=== PATIENT | male | born 1970 | race African-American/Black ===

== ENCOUNTER 2018-12-31 08:50 | Inpatient (IN) ==
[2018-12-31] MEDS ORDERED: ZOFRAN IV ONE (10:02)
[2018-12-31] MEDS ORDERED: DILAUDID IV ONE (10:02)
--- NOTE | 2018-12-31 10:57 | EKG Report ---
Test Performed on : 12/31/2018 10:23:59 AM Test Reason : epigastric pain Blood Pressure : / mmHG Vent. Rate : 084 BPM Atrial Rate : 084 BPM P-R Int : 204 ms QRS Dur : 102 ms QT Int : 418 ms P-R-T Axes : 053 -15 082 degrees QTc Int : 493 ms Normal sinus rhythm. Minimal voltage criteria for LVH, may be normal variant Nonspecific T wave abnormality Prolonged QT Abnormal ECG When compared with ECG of 03-DEC-2018 21:18, (Unconfirmed) No significant change was found Unconfirmed Result
[2018-12-31 11:09] LABS: ALLEN TEST YES; BE -5.1 mmoll (-3.0-3.0); BLOOD TYPE ARTERIAL; HCO3-(ACT) 20.8 mmoll (20.0-26.0); METHB 0.7 % (0.0-1.5); O2(CT) 15.8 mL/dL (15.0-23.0); O2HB 90.3 % (95.0-99.0); PCO2(98.6) 36 mmHg (35-45); PO2(98.6) 63 mmHg (60-100); SAMPLE BLOOD; SAO2 94.6 % (95.0-100.0); THB 12.4 g/dL (11.5-17.4); pH(98.6) 7.35 (7.35-7.45)
[2018-12-31 11:10] LABS: MODALITY ROOM AIR
[2018-12-31 12:11] LABS: URINE SOURCE CLEAN CATCH
[2018-12-31 12:14] LABS: BILIRUBIN URINE NEGATIVE (NEGATIVE); BLOOD URINE SMALL (NEGATIVE); COLOR YELLOW; GLUCOSE URINE NEGATIVE (NEGATIVE); KETONE URINE TRACE mg/dL (NEGATIVE); LEUKOCYTES URINE NEGATIVE (NEGATIVE); NITRITE URINE NEGATIVE (NEGATIVE); PROTEIN URINE 600 mg/dL (NEGATIVE); SP GRAVITY URINE 1.012; TURBIDITY URINE CLEAR (CLEAR); UROBILINOGEN URINE NORMAL (NORMAL)
[2018-12-31 12:15] LABS: UR EPITHELIAL CELLS <10 /HPF (<10); URINE BACTERIA NEGATIVE /HPF; URINE RBC <10 /HPF (<10); URINE WBC <10 /HPF (<10)
[2018-12-31 12:21] LABS: BASO# 0.05 X1000 (0.0-0.2); BASO% 0.9 % (0.0-0.8); EOS# 0.49 X1000 (0.0-0.7); EOS% 8.4 % (0.0-10.0); HEMATOCRIT 29.7 % (42.0-52.0); HEMOGLOBIN 9.5 g/dL (14.0-18.0); LYMPH# 0.83 X1000 (1.2-3.4); LYMPH% 14.2 % (20.5-51.1); MCH 29.6 PG (27-31); MCV 92.5 FL (81-99); MONO# 0.31 X1000 (0.11-0.59); MONO% 5.3 % (1.7-9.3); MPV 12.5 FL (7.4-10.4); NEUT# 4.15 X1000 (1.4-6.5); NEUT% 71.2 % (42.2-75.2); PLT 125 X1000 (130-400); RBC 3.21 XMIL (4.7-6.1); RDW 15.3 % (11.5-14.5); WBC 5.83 X1000 (4.8-10.8)
[2018-12-31 12:32] LABS: INR 1.12; PROTIME 14.6 Seconds (11.0-16.0)
[2018-12-31 12:33] LABS: PTT 32.8 Seconds (22.3-41.8)
[2018-12-31 12:50] LABS: ALB/GLOB RATIO 1.2; CALCIUM 9.1 mg/dL (8.8-10.2); MAGNESIUM 2.1 mg/dL (1.5-2.7); POTASSIUM 5.6 mmol/L (3.5-5.1); TOTAL BILIRUBIN 0.44 mg/dL (0.20-1.00); TOTAL PROTEIN 7.3 g/dL (6.3-8.3)
[2018-12-31 12:52] LABS: CREATININE 12.1 mg/dL (0.7-1.2)
--- NOTE | 2018-12-31 13:24 | Diag Imaging Result Doc PS360 ---
EXAM: CT ABD/PELVIS W/IV CONT ONLY 12/31/2018 HISTORY: epigastric pain TECHNIQUE: This exam was performed using automated exposure control, adjustment of mA or kV according to patient size, and/or use of iterative reconstruction technique. COMMENT: There are patchy areas of air trapping in the right lower lobe. There is some fibrosis in the lateral costophrenic sulcus of the left lower lobe. These findings were present on 11/27/2017. There is a tiny amount of fluid present in both pleural spaces particularly the posterior costophrenic sulcus of the right chest, and this was not present previously. There is a granuloma adjacent to the intrahepatic portion of the inferior vena cava. There are dense calcifications in the ostia of the renal arteries bilaterally. There is no evidence of abdominal aortic aneurysm. There are stents in the distal inferior vena cava and both common iliac veins. These extend into the external iliac veins. There are no gallstones. The liver and spleen are unremarkable. Both kidneys are somewhat atrophic in appearance. There are no stones. The right kidney is somewhat malrotated. The adrenal glands are not enlarged. There are calcifications in the pancreas with dilatation of the pancreatic duct in the tail and a cluster of calcifications in the head of the pancreas. This is denser and more concentrated than on the previous examination. The pancreatic head is not as enlarged as it was previously, and the peripancreatic inflammatory changes around the head of the pancreas are no longer evident. There does appear to be some residual peripancreatic fluid around the tail of the pancreas however. The findings are consistent with chronic pancreatitis changes. The dilatation of the duct in the tail was not present at the time the previous study. There is no evidence of bowel obstruction. No significant adenopathy is present. Pelvis: The appendix is normal in appearance. There is no free fluid. The urinary bladder is not distended. There is a right inguinal hernia containing a small bowel loop without evidence of obstruction. The regional skeleton appears to be intact. IMPRESSION: Findings consistent with chronic pancreatitis, with possible superimposed acute changes involving the tail of the pancreas. Dilatation of the pancreatic duct in the tail. Small right pleural effusion. Other nonacute findings as described above. Electronically signed by Ti Silva 12/31/2018 1:21 PM
[2018-12-31] MEDS ORDERED: NS 2,000 ML MISC PRN (14:32)
[2018-12-31] MEDS ORDERED: HEPARIN IV PRN (14:32)
--- NOTE | 2018-12-31 15:10 | PROVIDER DOCUMENTATION ---
This chart was entered by Cherise Ladd Scribe, acting as scribe for Jonn Ellis MD. HPI-Abdominal Pain/GI Problem - General Chief Complaint: Abdominal Pain Stated Complaint: ABD PAIN Time Seen by Provider: 12/31/18 09:51 Source: patient Allergies/Adverse Reactions: Patient Allergies Allergy/AdvReac Type Severity Reaction Status Date / Time No Known Allergies Allergy Verified 12/31/18 09:53 Home Medications: Home Medication List Medication Instructions Recorded Confirmed Last Taken Type Calcium Acetate 2 tab PO TID 09/21/17 12/31/18 09/25/18 History Carvedilol 25 mg PO BID 09/21/17 12/31/18 09/25/18 History Hydralazine [Apresoline] 50 mg PO TID 09/21/17 12/31/18 09/25/18 History Isosorbide Mononitrate [Isosorbide 60 mg PO DAILY 09/21/17 12/31/18 09/25/18 History Mononitrate ER] Folic Acid 1 mg PO DAILY #90 tab 10/22/17 12/31/18 09/25/18 Rx Arformoterol Neb [Brovana Neb] 15 microgm INH RTBID 30 Days #1 neb 11/25/17 12/31/18 09/25/18 Rx Pantoprazole [Protonix] 40 mg PO DAILY@0700 30 Days #30 tab 11/25/17 12/31/18 09/25/18 Rx Amlodipine [Norvasc] 10 mg PO DAILY #90 tab 01/04/18 12/31/18 09/25/18 Rx Aspirin 81 mg PO DAILY chewtab 01/04/18 12/31/18 09/25/18 Rx Oxycodone HCl/Acetaminophen 1 tab PO TID PRN PRN #0 01/04/18 12/31/18 09/25/18 Rx [Percocet 10-325 mg Tablet] Risperidone 1 mg PO BID 08/14/18 12/31/18 09/25/18 History Gabapentin [Neurontin] 100 mg PO QHS #10 cap 08/26/18 12/31/18 09/25/18 Rx Apixaban [Eliquis] 2.5 mg PO BID 11/02/18 12/31/18 Unknown History Cinacalcet [Sensipar] 30 mg PO DAILY 12/03/18 12/31/18 Unknown History Duloxetine [Cymbalta] 30 mg PO DAILY 12/03/18 12/31/18 Unknown History Fluoxetine [Prozac] 10 mg PO TID 12/03/18 12/31/18 Unknown History Ondansetron HCl [Zofran] 4 mg PO Q4-6H PRN PRN 12/03/18 12/31/18 Unknown History - History of Present Illness-ABD Nature of Presenting Problems: 48 yom c/o severe epigastric pain since last night w/multiple vomiting episodes. pt is missing dialysis today due to pain and coming to er. pt has hx of ckd, recurrent pancreatitis, chronic peripheral edema, diet controlled DM, copd, anemia and MN 1 yr ago w/no stent. pt is followed by Dr. Nunes. pt is on constant o2 at home. Abdominal Pain Onset Location: reports: epigastric Pain Radiation: reports: no radiation Onset/Duration: reports: last night Timing: reports: still present Activities at Onset: reports: none Associated Symptoms: reports: vomiting Last BM: unsure Review of Systems - Adult - REVIEW OF SYSTEMS - ADULT Constitutional: reports: no symptoms reported. denies: fever, fatique, night sweats Eyes: reports: no symptoms reported Ears, Nose, Mouth & Throat: reports: no symptoms reported Cardiovascular: reports: no symptoms reported Respiratory: reports: no symptoms reported Gastrointestinal: reports: see HPI, abdominal pain (epigastric), vomiting. denies: constipation, diarrhea, poor appetite Genitourinary: reports: no symptoms reported Musculoskeletal: reports: no symptoms reported Integumentary: reports: no symptoms reported Neurological: reports: no symptoms reported Psychiatric: reports: no symptoms reported Endocrine: reports: no symptoms reported Hematologic/Lymphatic: reports: no symptoms reported Allergic/Immunologic: reports: no symptoms reported All Other Systems: Reviewed and Negative Past History - Adult - PAST MEDICAL HISTORY-ADULT Review of Records: reports: Old Records Reviewed, Nursing Assessment Review, Medications Reviewed, Social history reviewed & non-contributory. Major Childhood Illnesses: reports: denies history Cardiovascular: reports: CHF, HTN, [place] Respiratory: reports: asthma, COPD Gastrointestinal: reports: pancreatitis Obstetrical/Gynecological: reports: denies history Genitourinary: reports: dialysis (Tues,Thurs,Sat), ESRD, kidney disease Musculoskeletal: reports: chronic pain Neurological: reports: denies history Psychiatric: reports: anxiety, bipolar, depression, psychiatric problems Endocrine/Immune: reports: anemia, Diabetes Other Conditions: reports: denies history - PRIOR SURGERIES/PROCEDURES Surgical/Procedure History: reports: other (stents bilateral lower legs, fistula right upper arm) - IMMUNIZATION STATUS Childhood Immunizations: See Nurse Assessment Flu Vaccine: See Nurse Assessment - FAMILY HISTORY Family History: reviewed, not pertinent - SOCIAL HISTORY Smoking: cigar (1/day) Substance Use: alcohol Alcohol Use Frequency: occasionally Physical Exam-General - PHYSICAL EXAM-ADULT Initial Vital Signs Reviewed: Yes - CONSTITUTIONAL General Appearance: appears well, alert, no apparent distress. negative: cachetic, lethargic, slow to respond - EYES Eyes: PERRL/EOMI, pink conjunctivae - HEAD, EARS, NOSE, MOUTH & THROAT HENMT: normocephalic/atraumatic, moist mucous membranes, normal ENT inspection - NECK Neck: non-tender, full range of motion, supple, normal inspection - RESPIRATORY Respiratory: chest non-tender, lungs clear, normal breath sounds - CARDIOVASCULAR Cardiovascular: normal peripheral pulses, regular rate, rhythm - GASTROINTESTINAL (ABDOMEN) Abdominal Exam: normal bowel sounds, soft, no organomegaly, no pulsatile mass, tenderness (moderate tenderness epigastric to palp). negative: non tender, abnormal bowel sounds, guarding, rigid - LYMPHATIC Lymphatic: no adenopathy - MUSCULOSKELETAL Back Exam: normal inspection, no CVA tenderness, no vertebral tenderness Extremity: normal range of motion, non-tender, normal inspection, other (fisutla RUE, chronic peripheal edema bilat LE) Peripheral Pulses: radial (R): 2+, radial (L): 2+ - SKIN Integumentary: normal color, normal turgor, warm/dry - NEUROLOGIC Neurologic: grossly normal, no motor/sensory deficits - PSYCHIATRIC Psych/Mental Status: normal mood/affect, normal thought content, normal thought process, oriented x 3 Progress - PLAN OF CARE/RESULTS Progress/Plan/Lab Results: Vital Signs - 8 hr 12/31/18 08:56 Temperature 97.4 F L Pulse Rate 88 Respiratory Rate 18 Blood Pressure 186/119 O2 Sat by Pulse Oximetry 94 L Result Diagrams: 12/31/18 11:46 12/31/18 11:46 - EKG 1 Time of EKG reading by physician:: 10:27 EKG Read and Signed by:: Jonn Ellis EKG Interpretation (*Must complete 3 of following elements*): Abnormal Rate: 84 Rhythm: NSR QRS: LVH (minimal voltage criteria for LVH, may be normal variant), other (prolonged QT) ST Wave: non-specific ST changes (nonspecific T wave abnormality) - CT/MRI 1 CT Study: Abdomen, Pelvis Impression: Abnormal, See EMR Report (EXAM: CT ABD/PELVIS W/IV CONT ONLY 12/31/2018 HISTORY: epigastric pain TECHNIQUE: This exam was performed using automated exposure control, adjustment of mA or kV according to patient size, and/or use of iterative reconstruction technique. COMMENT: There are patchy areas of air trapping in the right lower lobe. There is some fibrosis in the lateral costophrenic sulcus of the left lower lobe. These findings were present on 11/27/2017. There is a tiny amount of fluid present in both pleural spaces particularly the posterior costophrenic sulcus of the right chest, and this was not present previously. There is a granuloma adjacent to the intrahepatic portion of the inferior vena cava. There are dense calcifications in the ostia of the renal arteries bilaterally. There is no evidence of abdominal aortic aneurysm. There are stents in the distal inferior vena cava and both common iliac veins. These extend into the external iliac veins. There are no gallstones. The liver and spleen are unremarkable. Both kidneys are somewhat atrophic in appearance. There are no stones. The right kidney is somewhat malrotated. The adrenal glands are not enlarged. There are calcifications in the pancreas with dilatation of the pancreatic duct in the tail and a cluster of calcifications in the head of the pancreas. This is denser and more concentrated than on the previous examination. The pancreatic head is not as enlarged as it was previously, and the peripancreatic inflammatory changes around the head of the pancreas are no longer evident. There does appear to be some residual peripancreatic fluid around the tail of the pancreas however. The findings are consistent with chronic pancreatitis changes. The dilatation of the duct in the tail was not present at the time the previous study. There is no evidence of bowel obstruction. No significant adenopathy is present. Pelvis: The appendix is normal in appearance. There is no free fluid. The urinary bladder is not distended. There is a right inguinal hernia containing a small bowel loop without evidence of obstruction. The regional skeleton appears to be intact. IMPRESSION: Findings consistent with chronic pancreatitis, with possible superimposed acute changes involving the tail of the pancreas. Dilatation of the pancreatic duct in the tail. Small right pleural effusion. Other nonacute findings as described above. Electronically signed by Ti Silva 12/31/2018 1:21 PM) Comparison with other Films: changes noted - CONSULTS/PCP/HOSPITALIST Notification #1 *Consult/PCP/Hospitalist*: Dr. Nunes Time Discussed: 13:56 Consult Disposition: other (too late in day to OP dialyze.) #2 Consult: Dr. Son Time Discussed: 14:50 Consult Disposition: Admit Departure - Departure Date of Disposition Decision: 12/31/18 Time of Disposition Decision: 15:09 DIAGNOSIS: Dialysis patient, End stage renal disease, Epigastric pain Disposition: ADMITTED INPATIENT 09 Certified Medical Emergency: Emergent Condition: Fair Referrals and Follow-Ups: Marcos Nunes MD [Primary Care Provider] - - Critical Care Note This patient required my direct & personal management of CC.: No Attestation - Physician/ NEHA Attestation Patient care was provided by Advanced Practice Provider:: No The physician spent face to face time with patient:: Yes Advanced Practice Provider documentation review:: Supervising physician onsite and consulted in the evaluation and care of this patient. The physician did have a face to face encounter with the patient. This chart was documented by the indicated scribe, (Cherise Ladd Scribe) and accurately reflects the services I performed and decisions made by me, Jonn Ellis MD, as attested by the provider's signature.
[2018-12-31] MEDS ORDERED: TYLENOL PO PRN (18:09)
[2018-12-31] MEDS ORDERED: NS 1,000 ML IV SCH (18:09)
--- NOTE | 2018-12-31 18:23 | HISTORY AND PHYSICAL ---
PRIMARY CARE PHYSICIAN: None. PRINCIPAL QUALITY ENGINEER: Dr. Nunes. CHIEF COMPLAINT: Severe epigastric abdominal pain with multiple vomiting episodes, states he missed dialysis today due to the epigastric abdominal pain but is noted to have a history of chronic pancreatitis. HISTORY OF PRESENTING ILLNESS: This is a 48-year-old male who presents to [facility] with complaints of severe epigastric abdominal pain and multiple vomiting episodes this morning. States he was due for dialysis today but was unable to go due to the abdominal pain so he came on into the emergency room. He has a history of chronic pancreatitis. His laboratory data showed a potassium of 5.6, BUN of 56 with a creatinine of 12.1, proBNP was greater than 35,000 but that appears to be his baseline, his lipase was 172 which is up from 12/03/2018 when he was 50, his plasma lactate was 0.8. We did do a CT of the abdomen and pelvis that showed an impression of findings consistent with chronic pancreatitis with possible superimposed acute changes involving the tail of the pancreas, dilation of the pancreatic duct in the tail, small right pleural effusion. He was discussed with Dr. Nunes per the ER physician and was sent to the dialysis lab for dialysis today and will be admitted for further evaluation and treatment. PAST MEDICAL HISTORY: End-stage renal disease dialysis Monday, Monday, Monday, coronary artery disease, [place], CHF, diabetes diet controlled, erosive gastritis, hyperlipidemia, anemia, hypertension, chronic pancreatitis. PAST SURGICAL HISTORY: Right upper extremity AV graft and bilateral iliac artery stents. FAMILY HISTORY: Father had lung cancer, his mom when he was a year old from an MVA, first-degree relatives with history of CVA and diabetes. SOCIAL HISTORY: Currently lives with family, smokes 1 cigar daily and denies any alcohol or illicit drug use. ALLERGIES: He has no known drug allergies. HOME MEDICATIONS: We will obtain a current list, review and reconcile and restart as appropriate. LABORATORY DATA: Showed a white blood cell count of 5.83, hemoglobin 9.5, hematocrit 29.7, platelets 125,000, PT and INR of 14.6 and 1.12. ABG with a pH of 7.35, pCO2 36, PO2 63, bicarb 20.8 and this was on room air. Sodium 141, potassium 5.6, chloride 101, CO2 21, BUN of 56, creatinine 12.1, troponin was 0.085. ProBNP greater than 35,000, lipase 172, plasma lactate 0.8. Urinalysis was negative. CT of the abdomen and pelvis showed findings consistent with chronic pancreatitis with possible superimposed acute changes involving the tail of the pancreas, dilation of the pancreatic duct in the tail, small right pleural effusion. REVIEW OF SYSTEMS: He denied any fever, chills, blurred vision, dizziness, chest pain, coughing, shortness of breath, he was positive for epigastric abdominal pain, nausea, vomiting. Denies any constipation or diarrhea. PHYSICAL EXAMINATION: On arrival he had a temperature of 97.4 degrees, pulse 88, respirations 18, blood pressure 186/119, saturating 94% on room air, blood pressure is down currently at 172/108. GENERAL: This is a 48-year-old male who is lying in the bed and answers questions appropriately. HEENT: Normocephalic, atraumatic. Normal ENT inspection. Oropharynx and nares are clear. Pupils are equal, round, reactive to light, accommodation. Extraocular movements are intact. NECK: Normal inspection, normal range of motion. LUNGS: Clear to auscultation bilaterally with equal lung expansion and chest wall movement. HEART: Regular rate and rhythm. No murmurs, rubs, or gallops. ABDOMEN: Soft, there is some mild tenderness to the epigastric area to palpation. Bowel sounds are present x4 quadrants. MUSCULOSKELETAL: He has 5/5 strength x4 extremities. NEUROLOGICAL: The cranial nerves 2-12 appear grossly intact. ASSESSMENT: 1. Epigastric abdominal pain. 2. An acute on chronic pancreatitis. 3. Hypertension uncontrolled. 4. End-stage renal disease with dialysis Monday, Monday, Monday. 5. Tobacco abuse . PLAN: He will be admitted to the medical unit. He will go to dialysis today. Will consult Nephrology. Placed on telemetry, NPO, apply SCDs for DVT prophylaxis. Normal saline at 50 mL an hour, Dilaudid 1 mg IV q.3 hours p.r.n., Tylenol 650 p.o. q.6 hours p.r.n., Zofran 4 mg IV q.4 hours p.r.n., place an order for nursing to update and confirm home medications. Apply SCDs for DVT prophylaxis and recheck a CBC, BMP in the a.m. Further orders after seen by attending and by medical device sales consultant. Dictated by CLINT Landon for Jean Bradshaw MD cc: CLINT Landon MD
[2018-12-31] MEDS: DILAUDID IV PRN (19:42)
--- NOTE | 2018-12-31 20:49 | HISTORY AND PHYSICAL ---
ADDENDUM: Patient seen and examined by me [id number]. All the laboratory, vital signs, and images were reviewed. We have a CT scan that showed chronic pancreatitis with possible superimposed acute changes involving the tail of the pancreas. As per the patient, he has been having pain since yesterday. He is getting dialysis at this moment. We will provide also pain medication. He has been placed n.p.o. as well. I explained all this to the patient. As per the patient, he has been having multiple problems with pancreatitis during the year, at least more than 5 times per year since 2009. I told him that probably he will need to follow up with a Gastroenterology Department as an outpatient to try to control this and work on the cause. Like I mentioned before, he is getting dialysis at this moment. He is still complaining of some abdominal discomfort, but he feels better after getting pain treatment. We will monitor this patient closely. His blood pressure was a bit elevated, but now with dialysis, it seems to be more stable. His laboratory showed elevated BUN and creatinine and a proBNP of more than 35,000. His leukocyte count though is normal at 5.8 and hemoglobin is 9.5. This patient has been admitted to the medical floor. We will monitor this patient closely. I agree with the rest of the nurse practitioner's assessment and plan. cc: Jean Bradshaw MD
[2019-01-01] MEDS: DILAUDID IV PRN ×5 (01:48→22:37)
[2019-01-01 05:00] LABS: BASO# 0.03 X1000 (0.0-0.2); BASO% 0.7 % (0.0-0.8); EOS# 0.64 X1000 (0.0-0.7); EOS% 14.6 % (0.0-10.0); HEMATOCRIT 32.1 % (42.0-52.0); HEMOGLOBIN 10.1 g/dL (14.0-18.0); LYMPH% 15.9 % (20.5-51.1); MCH 29.3 PG (27-31); MCHC 31.5 g/dL (33-37); MONO# 0.46 X1000 (0.11-0.59); MONO% 10.5 % (1.7-9.3); MPV 11.7 FL (7.4-10.4); NEUT# 2.56 X1000 (1.4-6.5); NEUT% 58.3 % (42.2-75.2); PLT 108 X1000 (130-400); RBC 3.45 XMIL (4.7-6.1); RDW 15.3 % (11.5-14.5); WBC 4.39 X1000 (4.8-10.8)
[2019-01-01 05:40] LABS: CALCIUM 8.9 mg/dL (8.8-10.2); CREATININE 8.2 mg/dL (0.7-1.2); POTASSIUM 4.2 mmol/L (3.5-5.1)
[2019-01-01] MEDS: COREG PO SCH ×2 (09:33→21:05)
[2019-01-01] MEDS: IMDUR PO SCH (09:34)
[2019-01-01] MEDS: NORVASC PO SCH (09:34)
--- NOTE | 2019-01-01 10:40 | NEPHROLOGY CONSULTATION ---
DATE: 01/01/2019 REASON FOR CONSULTATION: Assistance with management, evaluate and treat. HISTORY OF PRESENT ILLNESS: Mr. Gillis is a 48-year-old man who is well known to us. He has diabetes, hypertension, coronary disease, congestive heart failure, hyperlipidemia, etc. He has known chronic pancreatitis and has had multiple previous admissions with abdominal pain nausea vomiting. He came back to the emergency room on the morning of admission with the same complaints; mid epigastric pain, dull, aching with some vomiting. Note no chills fever sweats night sweats. No shortness of breath. Chest discomfort. No radiation of the pain. No diarrhea, etc. He was dialyzed on yesterday afternoon. PAST MEDICAL HISTORY: As above. HOME MEDICATIONS: Include calcium acetate, carvedilol, hydralazine, isosorbide, folate, pantoprazole, Brovana, amlodipine, aspirin, oxycodone, risperidone, gabapentin, apixaban, cinacalcet, duloxetine, fluoxetine, ondansetron. ALLERGIES: None. SOCIAL HISTORY: He lives in [place] with his family. Continues to smoke. No alcohol. FAMILY HISTORY: Otherwise noncontributory. REVIEW OF SYSTEMS: Otherwise noncontributory. PHYSICAL EXAMINATION: Vital Signs: Blood pressure 159/103, heart rate 79, respirations 16, afebrile. General: No acute distress. Skin: Warm and dry. Conjunctivae are pink. Neck: Neck veins are not distended. Heart: Regular with a gallop and a murmur. Lungs: Equal. No crackles. Abdomen: Soft, minimally tender. No guarding or rebound. Bowel sounds are present. No organomegaly or masses. Extremities: Have no edema, clubbing or cyanosis. Neurologic: Nonfocal. IMPRESSION: 1. Chronic kidney disease 5D. He had his routine hemodialysis on yesterday. 2. Electrolytes/acid base/anemia all in target. 3. Hypertension. Blood pressure is markedly elevated. His home medications have not been restarted so I will restart these. I will stop his IV fluids. cc: Marcos Nunes MD
[2019-01-01] MEDS: ZOFRAN IV PRN ×2 (12:53→17:48)
[2019-01-01] MEDS: APRESOLINE PO SCH ×2 (15:10→21:06)
--- NOTE | 2019-01-01 17:31 | PROGRESS NOTE ---
DATE: 01/01/2019 SUBJECTIVE: Mr. Gillis presented on 12/31/2018, yesterday. He is a patient of Dr. Nunes. Severe epigastric abdominal pain, multiple vomiting episodes. States that he missed dialysis due to epigastric abdominal pain and nausea. Received his dialysis yesterday, though came to the hospital. He has a history of chronic pancreatitis. I feel the abdominal pain is part of the chronic pancreatitis. This is a 48-year-old male who presented to [facility] complaining of severe epigastric abdominal pain, multiple vomiting episodes the morning of admission, and was supposed to get dialysis, but he was unable to go, so came to the emergency room. He has a history of chronic pancreatitis. Potassium is 5.6, BUN is 56, creatinine was 12.1. ProBNP was greater than 35,000. PAST MEDICAL HISTORY: End-stage renal disease, gets hemodialysis Mondays, Wednesdays, and Fridays, coronary artery disease, myocardial infarction, congestive heart failure, diabetes, diet- controlled, erosive gastritis, hyperlipidemia, anemia, hypertension, chronic pancreatitis. PAST SURGICAL HISTORY: Right upper AV graft and bilateral iliac artery stents. OBJECTIVE: Vital signs: He remains afebrile, temperature 97.4 degrees, pulse 74, respirations 18, blood pressure 123/80. HEENT: Pupils are equal and round. Lungs: Clear in all lung lam. Cardiovascular: Regular rhythm and rate without murmur or S3. Abdomen: Soft. Skin: Warm and dry. Urine output was 3,700 mL. ASSESSMENT AND PLAN: 1. Chronic kidney disease stage 5D. Continue hemodialysis. His volume status, electrolytes, acid base appear to be on target. 2. Chronic pancreatitis. Presented with epigastric pain, so acute flare up. I am going to give him on clear liquids and maybe can advance his diet tomorrow. 3. Hypertension. Aware. REVIEW OF ORDERS: He is on Dilaudid 1 mg IV q.3 hours p.r.n., Norvasc 10 mg daily, Coreg 25 mg b.i.d., hydralazine 50 mg which I think he is taking 3 times a day, isosorbide mononitrate 60 mg daily. cc: Moustapha Waldrop MD
[2019-01-02] MEDS: DILAUDID IV PRN ×4 (04:43→21:39)
[2019-01-02] MEDS ORDERED: TIGHT: 0.2 ML/HR FOR DIALYSIS MISC PRN (06:34)
[2019-01-02] MEDS ORDERED: NS 2,000 ML MISC PRN (06:34)
[2019-01-02] MEDS ORDERED: HEPARIN IV PRN (06:34)
--- NOTE | 2019-01-02 08:59 | ECHO REPORT ---
ORDER DATE: 01/01/2019 MEASUREMENTS: Septal thickness 1.2, left ventricular internal diameter in diastole 6.2, aortic root 3.0, left atrium 5.5. SUMMARY: 1. Fair quality study. 2. Aortic valve is trileaflet and opens normally on 2-dimensional images. The peak gradient across the aortic valve is less than 10 mmHg. Mitral and tricuspid valves are without evidence of structural abnormality, while pulmonic valve is not well demonstrated. There is very mild mitral regurgitation and very mild tricuspid regurgitation. The aortic root is normal in size. 3. Fero-nf-iilsnyeo left ventricular enlargement demonstrated with normal wall thickness on 2- dimensional images. Estimated left ventricular ejection fraction is approximately 20% to 25% in the setting of severe global hypokinesis. Moderate left atrial enlargement is demonstrated. The right atrium and right ventricle are grossly normal in size with grossly preserved right ventricular systolic function. 4. No pericardial effusion. 5. Appearance of the inferior vena cava suggests normal central venous pressure. cc: MD Cristine Rdz CRNP
--- NOTE | 2019-01-02 13:11 | NEPHROLOGY PROGRESS NOTE ---
DATE: 01/02/2019 Subjective: patient laying across the bed Reading the newspaper. Voices wanting something more to eat than a clear liquid diet. Denies any uremic complaints. Objective: vitals. Temperature 97.4, pulse 66, blood pressure 116/73, respiratory rate 15, 02 sat 98% on 4 L nasal cannula. General: middle-aged black male lying across the bed in no acute distress. HEENT: normocephalic, a traumatic. Pupils equal and reactive to light. Mucous membranes moist. Skin: warm, dry, and intact. Neck: supple, no JVD noted cardiovascular: regular rate and rhythm with a gallop. no murmur. Respiratory: wheezes throughout upper lobes bilaterally Abdomen: soft, Nontender, and nondistended. Bowel sounds active. : not observed Extremities: no edema, clubbing, or sinuses. Left upper arm fistula. Palpable pulse. Neurological: alert and oriented to person, place, and time. Labs: wbc 4.39, hemoglobin 10.1, hematocrit 32.1, platelet count 108, sodium 140, potassium 4.2, four at 97, carbon dioxide 25, anion gap 18, BUN 32, creatinine 8.2, calcium 8.9. Intake 850, output 100. Impression: Chronic kidney disease stage 5D. He will receive his routine dialysis treatment today. No change in plan. Chronic pancreatitis. He denies any nausea and vomiting or abdominal tenderness today. Voices pain control with PRN medications. He asked us to increase his diet today which we will do to a renal diet. Electrolytes and acid base balance. Stable and in target. Anemia. Stable. cc: MD DANNI Wheeler
[2019-01-02] MEDS: APRESOLINE PO SCH ×3 (13:17→20:11)
[2019-01-02] MEDS: IMDUR PO SCH (13:18)
[2019-01-02] MEDS: NORVASC PO SCH (13:18)
[2019-01-02] MEDS: COREG PO SCH ×2 (13:18→20:11)
[2019-01-02] MEDS: PHOSLO PO SCH (16:51)
--- NOTE | 2019-01-02 17:58 | PROGRESS NOTE ---
DATE: 01/02/2019 SUBJECTIVE: Mr. Gillis is feeling better. He is on a diet. Still getting the epigastric discomfort. Did get his dialysis today. OBJECTIVE: Vital signs: Temp 97.2 degrees, pulse 70, respirations 19, blood pressure 110/70. HEENT: Pupils are equal and round. Lungs: Clear in all lung lam. Cardiovascular: Regular rhythm and rate without murmur or S3. Abdomen: Soft. Skin: Warm and dry. ASSESSMENT AND PLAN: 1. Chronic kidney disease stage 5D. He is on hemodialysis. Volume status, electrolytes, acid- base look appropriate. 2. Chronic pancreatitis. He is still getting some epigastric pain and we did advance his diet. 3. Hypertension. Blood pressures are controlled. 4. I am going to start him back on his home medications. Right now he is getting Dilaudid 1 mg IV q.3 hours p.r.n., Tylenol 650 mg p.o. q.6 hours, Norvasc 10 mg a day, calcium acetate was restarted at 1334 mg p.o. t.i.d., Coreg 25 mg b.i.d., Apresoline 50 mg t.i.d., isosorbide mononitrate 60 mg a day. If he continues to have epigastric pain, we will have to probably stop his diet and put him back on clear liquids. Appears he is making some progress. I will check lipase and amylase and electrolytes again in the morning, as well as CBC. cc: Moustapha Waldrop MD
[2019-01-03 05:30] LABS: BASO# 0.06 X1000 (0.0-0.2); BASO% 1.7 % (0.0-0.8); EOS# 0.74 X1000 (0.0-0.7); EOS% 20.4 % (0.0-10.0); HEMATOCRIT 29.3 % (42.0-52.0); HEMOGLOBIN 9.1 g/dL (14.0-18.0); LYMPH# 0.93 X1000 (1.2-3.4); LYMPH% 25.6 % (20.5-51.1); MCH 28.9 PG (27-31); MCHC 31.1 g/dL (33-37); MONO# 0.52 X1000 (0.11-0.59); MONO% 14.3 % (1.7-9.3); NEUT# 1.38 X1000 (1.4-6.5); PLT 98 X1000 (130-400); RBC 3.15 XMIL (4.7-6.1); RDW 14.9 % (11.5-14.5); WBC 3.63 X1000 (4.8-10.8)
[2019-01-03 05:45] LABS: ALB/GLOB RATIO 1.1; ALBUMIN 3.9 g/dL (3.5-5.0); CALCIUM 8.4 mg/dL (8.8-10.2); POTASSIUM 4.5 mmol/L (3.5-5.1); TOTAL BILIRUBIN 0.22 mg/dL (0.20-1.00); TOTAL PROTEIN 7.4 g/dL (6.3-8.3)
[2019-01-03 05:48] LABS: CREATININE 7.8 mg/dL (0.7-1.2)
[2019-01-03 05:52] LABS: BANDS 2 % (0-1); EOS 12 % (1-10); LYMPHS 20 % (21-51); MONO 16 % (1-9); SEGS 46 % (42-75)
[2019-01-03] MEDS: IMDUR PO SCH (08:17)
[2019-01-03] MEDS: COREG PO SCH ×2 (08:17→21:40)
[2019-01-03] MEDS: NORVASC PO SCH (08:17)
[2019-01-03] MEDS: APRESOLINE PO SCH ×3 (08:17→21:40)
[2019-01-03] MEDS: PHOSLO PO SCH ×3 (08:17→16:39)
[2019-01-03] MEDS: DILAUDID IV PRN ×4 (08:19→21:40)
[2019-01-03] MEDS ORDERED: MILK OF MAGNESIA PO ONE (13:38)
--- NOTE | 2019-01-03 14:08 | Diag Imaging Result Doc PS360 ---
KUB ABDOMEN - 01/03/2019 INDICATION: constipation COMPARISON: 06/12/2018 FINDINGS: There is moderate constipation. No bowel obstruction or free air. There are stable stents in the iliac vessels bilaterally. IMPRESSION: Constipation. Electronically signed by Socrates Riddle 01/03/2019 2:06 PM
[2019-01-03] MEDS ORDERED: MILK OF MAGNESIA PO PRN (16:09)
[2019-01-03] MEDS ORDERED: DULCOLAX PR PRN (16:10)
[2019-01-03] MEDS: DULCOLAX PR ONE ×2 (16:39→16:47)
--- NOTE | 2019-01-03 16:49 | PROGRESS NOTE ---
DATE: 01/03/2019 SUBJECTIVE: Mr. Gillis actually had his knees bent over the bed and was resting. Apparently, he likes to rest like that. He says his abdomen is not hurting, but he feels constipated and still kind of uncomfortable. OBJECTIVE: Temperature 98.2 degrees, pulse 70, respirations 18, blood pressure 127/69. Pupils are equal and round. Lungs: Clear in all lung lam. Cardiovascular: Regular in rate without murmur or S3. Abdomen: Soft. Skin: Warm and dry. ASSESSMENT AND PLAN: 1. Constipation. Abdominal x-ray was done and he has pretty profound constipation. We will give him some Milk of Magnesia. I am going to put him on some lactulose as well, see if we can clean him out a little bit. 2. Pancreatitis. Denies any abdominal vomiting, or tenderness, but is still uncomfortable. I think this is due to constipation. 3. Chronic kidney disease stage 5D. Continue his dialysis. His volume status, electrolytes, and acid base look to be doing well. We will repeat some lab. Repeated lab this morning, his lipase was down to 55. Electrolytes look good. Sodium 137, potassium 4.5, chloride 96, BUN 35, creatinine 7.8. So, I will add to his regimen right now, will give him MiraLAX twice a day and some lactulose 30 mL to see if we can correct his constipation. Hopefully, he can go home soon. cc: Moustapha Waldrop MD MTDD
--- NOTE | 2019-01-03 19:56 | NEPHROLOGY PROGRESS NOTE ---
DATE: 01/03/2019 Subjective: patient laying across the bed playing games on his phone. Voices tolerating increased diet. Denies any uremic complaints. Objective: vitals. Temperature 98.1, pulse 73, respirations 20, what pressure 134/89, 02 sat 95% on 3 L nasal cannula. General: middle-aged black male lying across the bed in no acute distress. HEENT: normocephalic, a traumatic. Pupils equal and reactive to light. Mucous membranes moist. Skin: warm, dry, and intact. Neck: supple, no JVD noted cardiovascular: regular rate and rhythm with a gallop. no murmur. Respiratory: wheezes throughout upper lobes bilaterally Abdomen: soft, Nontender, and nondistended. Bowel sounds active. : not observed Extremities: no edema, clubbing, or sinuses. Left upper arm fistula. Palpable pulse. Neurological: alert and oriented to person, place, and time. Labs: W BC 3.63, hemoglobin 9.1, hematocrit 29.3, platelet count 98, sodium 137, potassium 4.5, chloride 96, carbon dioxide 26, anion gap 15, Intake 240, output 2937 per Dialysis. Impression: Chronic kidney disease stage 5D. He will receive his routine dialysis treatment today. No change in plan. Chronic pancreatitis. He denies any nausea and vomiting. Continues pain control through PRN medications. Electrolytes and acid base balance. Stable and in target. Anemia. Stable. cc: Marcos Nunes MD MTDD
[2019-01-03] MEDS: LACTULOSE PO SCH (21:47)
[2019-01-03] MEDS: MIRALAX PO SCH (21:47)
[2019-01-04] MEDS ORDERED: NS 2,000 ML MISC PRN (06:28)
[2019-01-04] MEDS ORDERED: TIGHT: 0.2 ML/HR FOR DIALYSIS MISC PRN (06:28)
[2019-01-04] MEDS ORDERED: HEPARIN IV PRN (06:28)
[2019-01-04] MEDS: DILAUDID IV PRN ×2 (08:08→13:29)
--- NOTE | 2019-01-04 13:12 | NEPHROLOGY PROGRESS NOTE ---
DATE: 01/04/2019 SUBJECTIVE: He has no abdominal pain today. He still coughing but no significant sputum production. OBJECTIVE: Vital Signs: Blood pressure 108/71, heart rate 69, respirations 14, afebrile. General: No acute distress. Skin: Warm and dry. Oropharynx is moist. Neck: Neck veins are distended. Heart: Regular with a gallop. Lungs: Equal. No crackles or wheezes. Abdomen: Soft, nontender. Bowel sounds present. Extremities: Trace edema. No clubbing or cyanosis. IMPRESSION: 1. Chronic kidney disease 5D. Moderate volume expansion but electrolytes and acid-base are in target. He will have his routine hemodialysis treatment today. Goal of 3 to 4 L of ultrafiltration as his blood pressure allows. 2. Abdominal pain. Resolved. Constipation by x-ray. 3. Anemia. Hemoglobin is stable and does not meet criteria for transfusion. cc: Marcos Nunes MD
[2019-01-04] MEDS: IMDUR PO SCH (13:29)
[2019-01-04] MEDS: PHOSLO PO SCH ×3 (13:29→16:24)
[2019-01-04] MEDS: COREG PO SCH (13:29)
[2019-01-04] MEDS: NORVASC PO SCH (13:29)
[2019-01-04] MEDS: LACTULOSE PO SCH (13:30)
[2019-01-04] MEDS: APRESOLINE PO SCH ×2 (13:30→16:24)
[2019-01-04] MEDS: MIRALAX PO SCH (13:31)
[2019-01-04 14:01] VITALS: BP 125/65
--- NOTE | 2019-01-04 20:25 | DISCHARGE SUMMARY ---
ADMISSION DATE: 12/31/2018 DISCHARGE DATE: 01/04/2019 PRINCIPAL DIAGNOSIS: Acute on chronic pancreatitis. SECONDARY DIAGNOSES: 1. End-stage renal disease on hemodialysis. 2. History of coronary artery disease. 3. History of congestive heart failure. 4. Diabetes mellitus which is diet controlled. 5. Hyperlipidemia. 6. Anemia, probably of chronic disease. 7. Hypertension. 8. COPD. DISCHARGE MEDICATIONS: Include the following. 1. Amlodipine 10 mg p.o. daily. 2. Apixaban 2.5 mg p.o. twice a day. 3. Aspirin 81 mg p.o. daily. 4. Calcium acetate 667 mg p.o. 3 times a day. 5. Carvedilol 25 mg p.o. twice a day. 6. Cinacalcet 30 mg p.o. daily. 7. Duloxetine 30 mg p.o. daily. 8. Fluoxetine 10 mg p.o. 2 times a day. 9. Folic acid 1 mg p.o. daily. 10. Gabapentin 100 mg p.o. at bedtime. 11. Hydralazine 50 mg p.o. 3 times a day. 12. Imdur 60 mg p.o. daily. 13. Ondansetron 4 mg p.o. every 4 to 6 hours p.r.n. 14. Oxycodone/acetaminophen 10/325, one 3 times a day p.r.n. 15. Pantoprazole 40 mg p.o. daily. 16. Risperdal 1 mg p.o. twice a day. CONSULTATIONS DONE DURING THIS HOSPITAL STAY: 1. Dr. Marcos Nunes, Nephrology. 2. Dr. Jono Desai. PROCEDURES DONE DURING THIS HOSPITAL STAY: 2D echo on 01/01/2019, abdominal x-ray 01/03/2019. HOSPITAL COURSE: Mr. Celi Gillis is a 48-year-old male who was admitted to the hospital because of severe epigastric abdominal pain along with vomiting. He was diagnosed as having acute on chronic pancreatitis. The patient did receive conservative management. With regards to his end-stage renal disease, the patient did receive hemodialysis while in the hospital. The patient was noted to be anemic, and this was probably secondary to anemia of chronic disease. PHYSICAL EXAMINATION: Vital Signs: During my evaluation today vital signs were as follows: Temperature 97.5, pulse 77, respirations 14, blood pressure 125/65, oxygen 99%. HEENT: Atraumatic, normocephalic. Cardiovascular: S1, S2. Respiratory system: Has evidence of good entry bilaterally. Abdomen: Soft, nontender. No masses felt. Extremities: No evidence of edema. Central nervous system: No obvious focal deficits. PLAN: The patient can be discharged home today and follow up with primary care physician as well as Dr. Nunes as an outpatient. cc: Mariano Danielson MD
== END 2019-01-04 17:12 | disposition home or self-care (01) | DRG 438 ==
LOC: ED 08:50 → 1N 15:53 → SUATTDRO 15:53
PROVIDERS: ATTEND Internal Medicine

== ENCOUNTER 2019-02-05 10:40 | Day surgery (SDC) ==
--- NOTE | 2019-01-30 15:44 | EKG Report ---
Test Performed on : 01/30/2019 3:38:28 PM Test Reason : PAT Blood Pressure : / mmHG Vent. Rate : 076 BPM Atrial Rate : 076 BPM P-R Int : 186 ms QRS Dur : 108 ms QT Int : 412 ms P-R-T Axes : 059 -09 086 degrees QTc Int : 463 ms Normal sinus rhythm. Nonspecific T wave abnormality Prolonged QT Abnormal ECG When compared with ECG of 31-DEC-2018 10:23, (Unconfirmed) No significant change was found Confirmed by Michael SUE, P.J.M ([id number]) on 01/30/2019 8:01:50 PM
[2019-01-30 15:53] LABS: HEMATOCRIT 34.2 % (42.0-52.0); MCH 28.1 PG (27-31); MCHC 32.2 g/dL (33-37); MCV 87.5 FL (81-99); MPV 12.1 FL (7.4-10.4); RBC 3.91 XMIL (4.7-6.1); RDW 14.9 % (11.5-14.5); WBC 5.54 X1000 (4.8-10.8)
[2019-01-30 16:40] LABS: CALCIUM 8.9 mg/dL (8.8-10.2); POTASSIUM 5.7 mmol/L (3.5-5.1)
[2019-01-30 16:41] LABS: CREATININE 10.6 mg/dL (0.7-1.2)
[2019-02-05] MEDS ORDERED: KEFZOL 1 GM/D5W 1 GM/50 ML IVPB ONE (11:08)
[2019-02-05] MEDS ORDERED: 1/2 NS 500 ML ONE (11:08)
[2019-02-05 11:23] LABS: BASO# 0.05 X1000 (0.0-0.2); BASO% 1.2 % (0.0-0.8); EOS# 0.24 X1000 (0.0-0.7); EOS% 5.7 % (0.0-10.0); HEMATOCRIT 36.4 % (42.0-52.0); HEMOGLOBIN 12.1 g/dL (14.0-18.0); LYMPH% 23.8 % (20.5-51.1); MCH 29.2 PG (27-31); MCHC 33.2 g/dL (33-37); MCV 87.9 FL (81-99); MONO# 0.18 X1000 (0.11-0.59); MONO% 4.3 % (1.7-9.3); MPV 12.1 FL (7.4-10.4); NEUT# 2.74 X1000 (1.4-6.5); PLT 123 X1000 (130-400); RBC 4.14 XMIL (4.7-6.1); RDW 15.1 % (11.5-14.5); WBC 4.21 X1000 (4.8-10.8)
[2019-02-05] MEDS ORDERED: COREG PO ONE (11:30)
[2019-02-05 11:39] LABS: CALCIUM 8.3 mg/dL (8.8-10.2)
[2019-02-05 11:48] LABS: CREATININE 8.4 mg/dL (0.7-1.2)
[2019-02-05] MEDS ORDERED: DIPRIVAN 1% ONE (11:55)
[2019-02-05] MEDS ORDERED: XYLOCAINE-MPF 2% ONE (11:55)
[2019-02-05] MEDS ORDERED: FENTANYL ONE (12:02)
[2019-02-05] MEDS ORDERED: KEFZOL ONE (12:25)
[2019-02-05] MEDS ORDERED: HEPARIN ONE (12:25)
[2019-02-05] MEDS ORDERED: NS 1,000 ML ONE (12:25)
[2019-02-05] MEDS ORDERED: XYLOCAINE 1%/EPI 1:100,000 ONE (12:25)
[2019-02-05] MEDS ORDERED: PERCOCET-10 ONE (14:41)
[2019-02-05] MEDS ORDERED: DILAUDID ONE (14:44)
[2019-02-05] MEDS: APRESOLINE PO SCH (16:59)
[2019-02-05] MEDS: PHOSLO PO SCH (16:59)
[2019-02-05] MEDS: NORCO-10 PO PRN ×2 (17:00→21:09)
[2019-02-05] MEDS: PROZAC PO SCH (17:17)
[2019-02-05] MEDS: BROVANA NEB INH SCH (20:03)
--- NOTE | 2019-02-05 20:26 | OPERATIVE NOTE ---
PROCEDURE DATE: 02/05/2019 PROCEDURE: Right axillary exploration with excision of seroma cavity. SURGEON: Dr. Ilia MD. RADIO INTERFERENCE INVESTIGATOR: Dr. García, who assisted in every part of the operation, including exposure, dissection of the vessels, and excision of the cavity wall. 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 POSTOPERATIVE DIAGNOSIS: Right axillary seroma cavity. DESCRIPTION OF PROCEDURE: Satisfactory general anesthesia was achieved. The arm was extended to a 90 degree angle. The right axilla and arm were prepped and draped in a sterile fashion. We marked the skin in a transverse fashion over the palpated mass. The mass was pulsatile. We then incised the skin and carried our incision into the subcutaneous tissue. We actually entered the cavity and inside the cavity was serous fluid. We cultured it. We then extended our incision proximally. We identified the axillary vein and surrounded it with a blue vessel loop. We surrounded the venous limb of the graft with a blue vessel loop. We dissected out the arterial limb of the graft and surrounded it with a red vessel loop. We then dissected the proximal axillary artery and surrounded it with a red vessel loop. We dissected out the distal axillary artery as it became the brachial artery and surrounded it with a red vessel loop, so we had all ingress and egress vessels controlled. We gave the patient 5000 units of heparin. We then further dissected the seroma cavity and excised the wall. At no point did it enter the graft or the [place] vessel. We left the very posterior aspect of the wall that was between the limbs of the graft, but 80% of the wall was excised. There continued to be flow within the graft that was palpated, but there was absolutely no communication with this seroma cavity. We then irrigated out the wound with Kefzol-impregnated saline. We proceeded to close the subcutaneous tissue with interrupted 3-0 Polysorbs, including the back wall of the seroma cavity. We then closed the skin with a 4-0 Polysorb subcuticular stitch. A sterile island dressing was applied followed by lightly placed Brad bandage. He tolerated it well and was sent to the recovery room in satisfactory condition. cc: Jonn Morillo MD
[2019-02-05] MEDS ORDERED: SENSIPAR PO SCH (21:00)
[2019-02-05] MEDS ORDERED: SEROQUEL PO SCH (21:00)
[2019-02-05] MEDS ORDERED: NEURONTIN PO SCH (21:00)
[2019-02-05] MEDS: COREG PO SCH (21:10)
[2019-02-05] MEDS: RISPERDAL PO SCH (21:11)
[2019-02-05] MEDS: ZOFRAN PO PRN (21:41)
[2019-02-06] MEDS: ZOFRAN PO PRN (05:49)
[2019-02-06] MEDS: NORCO-10 PO PRN ×2 (05:49→09:20)
[2019-02-06] MEDS ORDERED: PROTONIX PO SCH (07:00)
[2019-02-06] MEDS: BROVANA NEB INH SCH (08:05)
[2019-02-06 08:22] VITALS: BP 155/87
[2019-02-06] MEDS ORDERED: IMDUR PO SCH (09:00)
[2019-02-06] MEDS ORDERED: NORVASC PO SCH (09:00)
[2019-02-06] MEDS ORDERED: NON-FORMULARY MED (Omeprazole 40 MG) PO SCH (09:00)
[2019-02-06] MEDS ORDERED: FOLIC ACID PO SCH (09:00)
[2019-02-06] MEDS ORDERED: CYMBALTA PO SCH (09:00)
[2019-02-06] MEDS ORDERED: ASPIRIN PO SCH (09:00)
[2019-02-06] MEDS: PHOSLO PO SCH (09:13)
[2019-02-06] MEDS: RISPERDAL PO SCH (09:14)
[2019-02-06] MEDS: APRESOLINE PO SCH (09:14)
[2019-02-06] MEDS: PROZAC PO SCH (09:14)
[2019-02-06] MEDS: COREG PO SCH (09:15)
[2019-02-06] MEDS ORDERED: KEFZOL 1 GM/D5W 1 GM/50 ML IVPB IV ONE (10:00)
--- NOTE | 2019-02-06 13:03 | PROVIDER PROGRESS NOTE ---
Progress Note Chief complaint: I had to have surgery on my dialysis access. HPI: Mr. Gillis is A 48-year-old -[place] male who is well known to our service. He has a past medical history of chronic kidney disease 5D with hemodialysis on Monday, , and Monday, hypertension, diabetes mellitus type two, and hyperlipidemia. Patient had his AV fistula placed in March or April 2016. Last year in December he had to have a percutaneous thrombectomy of the AV graft with balloon angioplasty. He presented to the emergency department on 01/29 for a mass to his graft. The next day he followed up with Dr. Morillo who performed an ultrasound of the right arm. It was found that he had an enlarged hematoma of the right axilla with concerns of pseudoaneurysm or aneurysm in the mid graft. He had a scheduled procedure yesterday to repair the pseudoaneurysm, however, it was found to be a pulsatile mass with serous fluid. Past medical history: chronic kidney disease 5D, hyperlipidemia, hypertension, diabetes mellitus type two, chronic anemia. Past surgical history: graft placement Social history: lives at home. Denies alcohol, tobacco, or illicit drug use. Family history: non contributory Allergies: no known Home medications: Norvasc, Eliquis, aspirin, calcium acetate, carvedilol, Sensipar, Cymbalta, Prozac, folic acid, gabapentin, hydralazine, isosorbide mononitrate, omeprazole, Zofran, Percocet 10, protonix, Seroquel, risperidone. Review of systems: neurological: denies altered mental status or confusion or dizziness. Eyes: denies blurriness, dryness, or change in visual acuity. ENT: denies tinnitus or change in hearing. Integumentary: denies any erythema, rash, or itching. Respiratory: Denies shortness of breath. Denies orthopnea or cough. Cardiovascular: denies palpitations or chest pain. G.I.: Denies nausea, vomiting, or abdominal pain. : denies change in flow, color, or amount, odor. Endocrine: Denies excessive thirst and hunger. Musculoskeletal: Denies weakness. Admits to right upper arm extremity pain. Labs: 4.21, hemoglobin 12.1, hematocrit 36.4, platelet count 123, sodium 136, potassium four, chloride 92, carbon dioxide 21, BUN 35, creatinine 8.4. Intake 500, output 90. Physical exam: vitals. 98.4, pulse 74, respirations 18, blood pressure 144/85, 02 sat 93% on room air. General: -[place] male lying in bed in no acute distress Skin: warm and dry. Incision to right axillary region with dressing in place. HEENT: normocephalic, a traumatic, pupils equal and reactive mucous membranes moist. Trachea midline. Next line neck: supple, positive JVD. Cardiovascular: S1, S2. No murmurs or gallops noted. Respiratory: clear with equal air excursion anteriorly Abdomen: soft, nontender, nondistended. Bowel sounds present. : non-inspected Extremities: no clubbing, cyanosis, or edema noted. Your logical: alert and oriented to person, place, and time. Assessment and plan: Chronic kidney disease stage 5D. Patient will discharge and have dialysis at [facility] today. Ancef 1 gram after HD today. Blood pressure. In target. Acid-base balance electrolytes. In target. Volume status. Euvolemic on exam. Medication review. No changes. Acid-base balance and electrolytes. In target. Medication review. No changes.
--- NOTE | 2019-02-06 13:19 | GENERAL SURGERY PROGRESS NOTE ---
DATE: 02/06/2019 Mr. Gillis is postop day 1 after excision of the seroma cavity in the right axilla. This morning he has no evidence of bleeding. He has good flow in his graft. We will plan to proceed with dialysis and then discharge him after dialysis. He will return to see me in follow up. His cultures were pending. cc: Jonn Morillo MD
== END 2019-02-06 11:41 | disposition home or self-care (01) ==
LOC: 1N 10:40 → OR 10:40
PROVIDERS: ATTEND Surgery